=== PATIENT | male | born 1950 | race Caucasian/White ===

== ENCOUNTER 2017-04-02 09:44 | Inpatient (IN) ==
[2017-04-02] MEDS ORDERED: *HR* Morphine 2 MG/ML SYRINGE IVP ONE (10:07)
[2017-04-02] MEDS ORDERED: Ondansetron 4 MG/2 ML VIAL IVP ONE (10:07)
--- NOTE | 2017-04-02 10:31 | Emergency Department Note ---
Disposition Clinical Impression: Acute appendicitis Qualifiers: Acute appendicitis type: with localized peritonitis Qualified Code(s): K35.3 - Acute appendicitis with localized peritonitis Disposition: Admitted As Inpatient Condition: Good Time of Disposition: 11:20 General Adult HPI - General Chief complaint: ED Abdominal Pain Stated complaint: Abd pain Time Seen by Provider: 04/02/17 09:55 Source: patient, family Mode of arrival: ambulatory Limitations: no limitations Nursing Notes Reviewed: Yes Vital Signs Reviewed: Yes - History of Present Illness HPI Narrative: 59-year-old male presenting to the emergency department with chief complaint of abdominal pain. Patient states last evening he cannot possibly because he was having periumbilical pain. The pain is located in the right lower quadrant. He describes nausea but denies vomiting or diarrhea. He denies fever, chest pain, shortness of breath. Patient denies any abdominal surgeries in the past. He states he is going to try to take an Aleve this morning but felt so nauseous she can take anything. Patient has no significant medical history. Patient states the pain is constant but does not radiate. Pain Scale: 9 - Related Data Allergies Allergy/AdvReac Type Severity Reaction Status Date / Time rosuvastatin [From Crestor] AdvReac Muscle Pain Verified 04/02/17 11:35 All systems ED: reviewed and negative except as stated. Constitutional: Denies: fever, chills Eyes: Reports: as per HPI ENT ED: Reports: as per HPI Cardiovascular: Denies: chest pain, palpitations Respiratory: Denies: cough, dyspnea, wheezes Gastrointestinal: Reports: abdominal pain, nausea, vomiting. Denies: diarrhea Genitourinary: Reports: as per HPI Musculoskeletal: Reports: as per HPI Integumentary: Denies: rash, abrasion, lesions Neurological: Reports: as per HPI Psychiatric: Reports: as per HPI Endocrine: Reports: as per HPI Hematological/Lymphatic: Reports: as per HPI Allergic/Immunologic: Reports: as per HPI Past Medical History - Past Medical History Attestation: Yes The following information was validated with the patient. Medical history: Reports: glaucoma, hypertension Psychiatric history: Reports: no psych history - Social History Smoking Status: Former smoker Alcohol use: Reports: occasionally Drug use: Reports: none Physical Exam - General Limitations: no limitations General appearance: alert, in no apparent distress - Head Head exam: atraumatic, normocephalic, normal inspection - Eye Eye exam: Present: normal appearance. Absent: scleral icterus, conjunctival injection - Chest Chest inspection: Present: normal inspection, symmetric chest wall rise. Absent : tenderness - Respiratory Respiratory exam: Present: normal lung sounds bilaterally. Absent: respiratory distress, wheezes - Cardiovascular Cardiovascular exam: Present: regular rate, normal rhythm, normal heart sounds - Abdominal Exam Abdominal exam: Present: soft, tenderness, guarding, tenderness at [place]Bur[place]'s Point. Absent: distention, rebound, rigidity, organomegaly, trauma, incision, ascites, mass, hernia, scar Abdominal tenderness: Present: RLQ, severe - Extremities Exam Extremities exam: Present: normal inspection, full ROM - Back Exam Back exam: Absent: CVA tenderness (R), CVA tenderness (L) - Neurological Exam Neurological exam: Present: alert, oriented X3 - Psychiatric Psychiatric exam: Present: normal affect, normal mood - Skin Skin exam: Present: warm, intact Course Course Narrative: 67-year-old male presenting to the emergency department with chief complaint of right lower quadrant abdominal pain. Patient is extremely tender on exam. He does not have a surgical abdomen at this time but his pain is increasing significantly. We will obtain a CT of the abdomen and pelvis with IV contrast. He will also obtain belly labs including CBC, CMP, lipase. We will treat his nausea and pain as well. Disposition pending at this time. Patient's alert and oriented 3 in the room with stable vital signs at this time. - Reevaluation(s) Reevaluation #1: Patient's CT of abdomen and pelvis showed acute appendicitis. I spoke with the surgeon waste transportation technician Dr. Wallace. He agrees to accept the patient for surgery at this time. We will start prophylactic antibiotics along with fluid replacement via IV. Patient's alert and oriented 3 in the room with stable vital signs at this time. is at bedside. They agree with this plan and are willing to move forward. Time: 11:20 Vital Signs Temperature 97.5 F L 04/02/17 09:45 Pulse Rate 69 04/02/17 09:45 Respiratory Rate 16 04/02/17 09:45 Blood Pressure 183/118 04/02/17 09:45 O2 Sat by Pulse Oximetry 95 04/02/17 09:45 Temperature 97.2 F L 04/02/17 15:44 Pulse Rate 87 10/28/17 18:42 Respiratory Rate 18 04/02/17 17:42 Blood Pressure 148/94 04/02/17 18:42 O2 Sat by Pulse Oximetry 95 04/02/17 18:42 Oxygen Delivery Oxygen Delivery Room Air Medical Decision Making - Lab Data Result diagrams: 04/02/17 11:04 04/02/17 11:04 Lab Results 04/02/17 04/02/17 04/02/17 Range/Units 10:18 10:40 11:04 WBC 10.6 (4.3-11.1) K/mcL RBC 5.39 (4.19-5.50) M/mcL Hgb 17.0 H (12.9-16.9) g/dL Hct 49.1 (37.5-50.1) % MCV 91.1 (83.0-100.0) fL MCH 31.5 (28.0-33.3) pg MCHC 34.6 (31.6-35.5) g/dL RDW 12.4 (11.5-14.5) % Plt Count 233 (140-400) K/mcL MPV 9.1 L (9.4-12.4) fL Immature Gran % 0.4 (0-4) % Seg Neutrophils % 84.7 % Lymphocytes % 7.5 % Monocytes % 6.3 % Eosinophils % 0.7 % Basophils % 0.4 % Neutrophils # 9.0 H (1.6-8.9) K/mcL Lymphocytes # 0.8 (0.6-4.6) K/mcL Monocytes # 0.7 (0.0-1.3) K/mcL Eosinophils # 0.1 (0.0-0.6) K/mcL Basophils # 0.0 (0.0-0.2) K/mcL Immature Plt Fraction 2.4 (1.1-6.1) % PT (9.4-12.1) Seconds INR Sodium (136-145) mEq/L Potassium (3.5-4.5) mEq/L Chloride (98-109) mEq/L Carbon Dioxide (19-29) mEq/L BUN (8-26) mg/dL Creatinine (0.72-1.25) mg/dL Est GFR ( Amer) (> 60) Est GFR (Non-Af Amer) (> 60) BUN/Creatinine Ratio (6-26) Glucose (70-99) mg/dL Calculated Osmolality (280-300) Calcium (8.6-10.8) mg/dL Total Bilirubin (0.2-1.2) mg/dL Direct Bilirubin (0.0-0.5) mg/dL Indirect Bilirubin (0.0-1.2) mg/dL AST (5-34) Units/L ALT (0-55) Units/L Alkaline Phosphatase (38-126) Units/L Serum Total Protein (6.0-8.3) g/dL Albumin (3.5-5.0) g/dL Globulin (2.4-3.5) g/dL Albumin/Globulin Ratio (1.1-2.2) Lipase (8-78) Units/L Urine Color Yellow (Yellow) Urine Clarity Turbid A (Clear) Urine pH 7.5 (5.0-8.0) pH Units Ur Specific [place] 1.022 (1.010-1.025) Urine Protein Trace (Neg-Trace) mg/dL Urine Glucose (UA) Normal (Normal) mg/dL Urine Ketones Negative (Negative) mg/dL Urine Blood Negative (Negative) Urine Nitrite Negative (Negative) Urine Bilirubin Negative (Negative) Urine Urobilinogen Normal (Normal) mg/dL Ur Leukocyte Esterase Negative (Negative) Urine Microscopic RBC 15-30 H (0-3) per hpf Urine Microscopic WBC 0-3 (0-3) per hpf Ur Squamous Epith Cells Few (None-Few) per lpf Urine Bacteria None Seen (None-Few) per hpf Hyaline Casts None Seen (None-Few) per lpf Ur Culture Indicated? NO (NO) Specimen Rejected Clotted 04/02/17 04/02/17 Range/Units 11:04 11:04 WBC (4.3-11.1) K/mcL RBC (4.19-5.50) M/mcL Hgb (12.9-16.9) g/dL Hct (37.5-50.1) % MCV (83.0-100.0) fL MCH (28.0-33.3) pg MCHC (31.6-35.5) g/dL RDW (11.5-14.5) % Plt Count (140-400) K/mcL MPV (9.4-12.4) fL Immature Gran % (0-4) % Seg Neutrophils % % Lymphocytes % % Monocytes % % Eosinophils % % Basophils % % Neutrophils # (1.6-8.9) K/mcL Lymphocytes # (0.6-4.6) K/mcL Monocytes # (0.0-1.3) K/mcL Eosinophils # (0.0-0.6) K/mcL Basophils # (0.0-0.2) K/mcL Immature Plt Fraction (1.1-6.1) % PT 11.1 (9.4-12.1) Seconds INR 1.0 Sodium 135 L (136-145) mEq/L Potassium 4.0 (3.5-4.5) mEq/L Chloride 102 (98-109) mEq/L Carbon Dioxide 27 (19-29) mEq/L BUN 14 (8-26) mg/dL Creatinine 0.85 (0.72-1.25) mg/dL Est GFR ( Amer) > 60 (> 60) Est GFR (Non-Af Amer) > 60 (> 60) BUN/Creatinine Ratio 16 (6-26) Glucose 103 H (70-99) mg/dL Calculated Osmolality 281 (280-300) Calcium 8.9 (8.6-10.8) mg/dL Total Bilirubin 1.2 (0.2-1.2) mg/dL Direct Bilirubin 0.4 (0.0-0.5) mg/dL Indirect Bilirubin 0.8 (0.0-1.2) mg/dL AST 24 (5-34) Units/L ALT 19 (0-55) Units/L Alkaline Phosphatase 88 (38-126) Units/L Serum Total Protein 6.9 (6.0-8.3) g/dL Albumin 3.8 (3.5-5.0) g/dL Globulin 3.1 (2.4-3.5) g/dL Albumin/Globulin Ratio 1.2 (1.1-2.2) Lipase < 10 (8-78) Units/L Urine Color (Yellow) Urine Clarity (Clear) Urine pH (5.0-8.0) pH Units Ur Specific [place] (1.010-1.025) Urine Protein (Neg-Trace) mg/dL Urine Glucose (UA) (Normal) mg/dL Urine Ketones (Negative) mg/dL Urine Blood (Negative) Urine Nitrite (Negative) Urine Bilirubin (Negative) Urine Urobilinogen (Normal) mg/dL Ur Leukocyte Esterase (Negative) Urine Microscopic RBC (0-3) per hpf Urine Microscopic WBC (0-3) per hpf Ur Squamous Epith Cells (None-Few) per lpf Urine Bacteria (None-Few) per hpf Hyaline Casts (None-Few) per lpf Ur Culture Indicated? (NO) Specimen Rejected Attestation Statement - Attestation Attestation: I examined this patient and my medical decision-making was reviewed with the Resident Physician. I agree with the documented findings, disposition and treatment plan as described except to the extent set forth below. Findings of acute appendicitis. Discussed case with surgery. Kayy initiated. Plan to admit to surgery patient will go right to the ER.
[2017-04-02 10:45] LABS: Bilirubin,Urine Negative (Negative); Blood,Urine Negative (Negative); Clarity,Urine Turbid (Clear); Color,Urine Yellow (Yellow); Glucose,Urine (UA) Normal (Normal); Ketones,Urine Negative (Negative); Leukocyte Esterase,Urine Negative (Negative); Nitrite,Urine Negative (Negative); PH,Urine 7.5 pH Units (5.0-8.0); Protein,Urine Trace mg/dL (Neg-Trace); Specific Gravity,Urine 1.022 (1.010-1.025); Urobilinogen,Urine Normal (Normal)
[2017-04-02 10:47] LABS: Bacteria,Urine None Seen per hpf (None-Few); Hyaline Casts,Urine None Seen per lpf (None-Few); RBC,Urine 15-30 per hpf (0-3); Squamous Epithelial Cell,Urine Few per lpf (None-Few); WBC,Urine 0-3 per hpf (0-3)
[2017-04-02] MEDS ORDERED: 0.9 % Sodium Chloride 1,000 ML IVC ONE (11:05)
[2017-04-02] MEDS ORDERED: Piperacillin/Tazobactam 3.375 GM in D5% in Water (Mini-Bag+) 100 ML IVPB ONE (11:05)
[2017-04-02 11:13] LABS: Basophils % 0.4 %; Eosinophils # 0.1 K/mcL (0.0-0.6); Eosinophils % 0.7 %; Hematocrit 49.1 % (37.5-50.1); Immature Granulocytes % 0.4 % (0-4); Immature Platelets 2.4 % (1.1-6.1); Lymphocytes # 0.8 K/mcL (0.6-4.6); Lymphocytes % 7.5 %; Mean Corpuscular HGB Conc 34.6 g/dL (31.6-35.5); Mean Corpuscular Hemoglobin 31.5 pg (28.0-33.3); Mean Corpuscular Volume 91.1 fL (83.0-100.0); Mean Platelet Volume 9.1 fL (9.4-12.4); Monocytes # 0.7 K/mcL (0.0-1.3); Monocytes % 6.3 %; Platelet Count 233 K/mcL (140-400); Red Blood Count 5.39 M/mcL (4.19-5.50); Red Cell Distribution Width 12.4 % (11.5-14.5); Segmented Neutrophils % 84.7 %
[2017-04-02 11:17] LABS: Prothrombin Time 11.1 Seconds (9.4-12.1)
--- NOTE | 2017-04-02 11:21 | Anesthesia Evaluation PreOp ---
Date of Encounter: 04/02/17 Time of Encounter: 13:18 - Past History Planned Operation: lap appy Cardiac History: HTN, Other (3.1cm AAA) Pulmonary History: Former smoker, ZEKE Dx (mild ZEKE) CATALOGUE AND SPECIAL PRODUCTS MANAGER History: Other (glaucoma) Other Medical History: Denies Any Significant HX Anesthesia History: No Prior Anesthetic Complications, Past Anesthesia (eye sx, meniscus sx) Alcohol Use: occasionally Drug use: none Medications and Allergies Bimatoprost [Lumigan] 1 drop LEFT EYE HS 04/02/17 [History] Dorzolamide/Timolol [Cosopt] 1 drop RIGHT EYE BID 04/02/17 [History] Meclizine HCl [Verticalm] 25 mg PO Q6H PRN 04/02/17 [History] Multivitamin [One Daily Essential] 1 tab PO DAILY 04/02/17 [History] Ranitidine HCl [Zantac 75] 75 mg PO DAILY 04/02/17 [History] 3 Allergy/AdvReac Type Severity Reaction Status Date / Time rosuvastatin [From Crestor] AdvReac Muscle Pain Verified 04/02/17 11:35 - Meds/Allergy Pre-op Review Medications Reviewed: Yes Allergies Reviewed: Yes Beta Blockers on Current Med List: No Anesthesia Results - Labs 04/02/17 11:04 04/02/17 11:04 - Imaging Additional studies: CT abdo: acute appendicitis Anesthesia Exam Selected Entries 04/02/17 09:45 04/02/17 11:24 Temperature 97.5 F L Pulse Rate 67 Respiratory Rate 16 Blood Pressure 148/80 O2 Sat by Pulse Oximetry 95 Weight: 100kg NPO (# of Hours): 6 - HEENT Pupil (Motor): EOMI Mallampati: II Teeth: Missing (front upper) Oral Opening: Greater than 3 - CATALOGUE AND SPECIAL PRODUCTS MANAGER LOC: Oriented CATALOGUE AND [employer] PRODUCTS MANAGER Motor: Normal RUE, Normal LUE, Normal RLE, Normal LLE, Normal Face CATALOGUE AND [employer] PRODUCTS MANAGER Sensory: Normal: RUE, LUE, RLE, LLE, Face - Cardiac Rhythm: Regular Murmur: None - Pulmonary Breath Sounds: bilateral Clear Respiratory Effort: Symmetrical Anesthesia Assess/Plan ASA Score: 2, E Modified [place]quel Scale for Level of Consciousness: Cooperative, oriented, and tranquil Anesthetic Plan: General Monitoring Plan: Standard Monitors Recovery Plan: PACU (Discussed risks of GA, agrees to proceed)
[2017-04-02 11:27] LABS: Alanine Aminotransferase 19 Units/L (0-55); Albumin 3.8 g/dL (3.5-5.0); Albumin/Globulin Ratio 1.2 (1.1-2.2); Alkaline Phosphatase 88 Units/L (38-126); Aspartate Amino Transferase 24 Units/L (5-34); BUN/Creatinine Ratio 16 (6-26); Bilirubin,Direct 0.4 mg/dL (0.0-0.5); Bilirubin,Indirect 0.8 mg/dL (0.0-1.2); Bilirubin,Total 1.2 mg/dL (0.2-1.2); Blood Urea Nitrogen 14 mg/dL (8-26); Calcium 8.9 mg/dL (8.6-10.8); Carbon Dioxide 27 mEq/L (19-29); Chloride 102 mEq/L (98-109); Globulin 3.1 g/dL (2.4-3.5); Glucose 103 mg/dL (70-99); Osmolality,Calculated 281 (280-300); Sodium 135 mEq/L (136-145); Total Protein 6.9 g/dL (6.0-8.3); eGFR For African Americans > 60 (> 60); eGFR For Non-African Americans > 60 (> 60)
--- NOTE | 2017-04-02 11:27 | General Surg History&Physical ---
Date of Encounter: 04/02/17 Time of Encounter: 11:15 Assessment and Plan (1) Acute appendicitis Current Visit: Yes Status: Acute The assessment and plan as outlined above was discussed with the patient and/or family members who expressed understanding and agreement. All questions were answered. The patient presents with clinical and radiologic evidence of acute appendicitis. I have recommended laparoscopic appendectomy. I discussed risks and benefits with the patient he understands and wishes to proceed. Qualifiers: Acute appendicitis type: with localized peritonitis Qualified Code(s): K35.3 - Acute appendicitis with localized peritonitis History of Present Illness Chief complaint: Abdominal pain HPI: Mr. Antony is a 67 year old male Who developed centralized abdominal pain last evening. He developed right lower quadrant pain this morning. He has pain with motion. At 8:00 this morning he took his pills but did not want to take them on an empty stomach so he had a piece of bread. He does not have any appetite. The pain is unrelenting and worsening. He sought evaluation in the emergency department. CAT scan demonstrated acute appendicitis. She now presents for laparoscopic appendectomy. Past Med Surg Social Fam HX - Past Medical History Medical history: glaucoma, hypertension Psychiatric history: no psych history - Social History Smoking Status: Former smoker Alcohol use: occasionally Drug use: none Medications and Allergies 3 Allergy/AdvReac Type Severity Reaction Status Date / Time rosuvastatin [From Crestor] Allergy Weakness Verified 04/02/17 09:46 Review of Systems All systems PM: A 10-system review of systems was performed and is negative for pertinent findings except as documented above in the HPI. General Surgery Exam Initial Vital Signs Temp Pulse Resp BP Pulse Ox 97.5 F L 69 16 183/118 95 04/02/17 09:45 04/02/17 09:45 04/02/17 09:45 04/02/17 09:45 04/02/17 09:45 - General physical appearance well developed, well nourished, no distress - Neck no masses, no bruits, trachea midline, no lymphadectomy, no venous distension - Respiratory normal expansion, normal respiratory effort, clear to percussion, clear to auscultation - Cardiovascular Cardiovascular exam: Present: RRR, 15, 16 - Abdomen Abdomen general surgery: Present: guarding, rebound Abdominal Tenderness: Present: RLQ - Neurologic Present: CN 2-12 grossly intact, normal coordination, normal sensation - Psychiatric Psychiatric general surgery: Present: appropriate, oriented to person, oriented to place, oriented to time, speech is normal, memory intact Results - Labs 04/02/17 11:04 Abnormal lab results Hgb 17.0 g/dL (12.9-16.9) H 04/02/17 11:04 MPV 9.1 fL (9.4-12.4) L 04/02/17 11:04 Neutrophils # 9.0 K/mcL (1.6-8.9) H 04/02/17 11:04 Urine Clarity Turbid (Clear) A 04/02/17 10:40 Urine Microscopic RBC 15-30 per hpf (0-3) H 04/02/17 10:40 All other labs normal. - Imaging CT scan - abdomen: image reviewed (I personally reviewed the CAT scan of the abdomen. Findings are consistent with acute appendicitis.)
[2017-04-02 11:28] LABS: Lipase < 10 Units/L (8-78)
[2017-04-02] MEDS ORDERED: *HR* Rocuronium Bromide 50 MG/5 ML VIAL ONE (12:15)
[2017-04-02] MEDS ORDERED: *HR* Propofol 200 MG/20 ML VIAL IVP ONE ×2 (12:15→13:59)
[2017-04-02] MEDS ORDERED: *HR* FentaNYL (PF) 100 MCG/2 ML VIAL ONE (12:15)
[2017-04-02] MEDS ORDERED: *HR* Midazolam HCl 2 MG/2 ML VIAL ONE (12:15)
[2017-04-02] MEDS ORDERED: Ondansetron 4 MG/2 ML VIAL ONE ×2 (12:15→16:30)
[2017-04-02] MEDS ORDERED: Dexamethasone 4 MG/ML VIAL ONE (12:15)
[2017-04-02] MEDS ORDERED: Lidocaine -MPF 2% 2 ML VIAL ONE (12:15)
[2017-04-02] MEDS ORDERED: Neostigmine Methylsulfate 3 MG/3 ML SYRINGE ONE (14:46)
[2017-04-02] MEDS ORDERED: *HR* HYDROmorphone 2 MG/ML SYRINGE ONE (14:46)
--- NOTE | 2017-04-02 15:02 | Operative Note ---
Date of procedure: 04/02/17 Pre-op diagnosis: Acute appendicitis Post-op diagnosis: other (Acute appendicitis with full perforation and free pus and stool in the abdominal cavity) Procedure: Laparoscopic appendectomy Anesthesia: STACY Surgeon: Baljit Wisdom Estimated blood loss (cc): 40 Specimen: Appendix Condition: stable Disposition: PACU Procedure in Detail: After informed consent the patient was taken to the major operative suite and placed in the supine position and given adequate general anesthetic. Time out was taken. Patient was identified. I made a vertical midline incision below the umbilicus and dissected down to the level of fascia. 2 traction stitches were placed in the fascia. The abdomen was entered visually. I placed a Carpenter trocar. The abdomen was insufflated to 15 mmHg pressure. There was generalized peritonitis in the right lower quadrant. There was free pus and visible stool emanating from a perforation 1 cm from the base of the cecum. The cecum had unusual anterior abdominal wall adhesions. These were lysed under direct vision. The cecum was fully mobilized. The mesial appendix was fully mobilized. I divided the base the cecum with a load of gastrointestinal laparoscopic shantel. I divided the mesoappendix with 2 loads of vascular shantel. Both vascular shantel had bleeding after division. Both staple lines were controlled with a combination of electrocautery and #10 surgical clips I irrigated the pelvis and right lower quadrant with copious amounts of antibiotic containing solution. At the end of the procedure all staple lines were intact. There was no bleeding. There is no visible pus or stool. I did not think that a drain was appropriate. All trochars were removed. Fascia was closed with 0 Vicryl and the skin was closed with 2-0 Vicryl and 4-0 Vicryl.
--- NOTE | 2017-04-02 15:35 | Anesthesia Evaluation Post Op ---
Date of Encounter: 04/02/17 Time of Encounter: 15:35 - Vital Signs Vital Signs: Selected Entries 04/02/17 15:10 Temperature 97.9 F Pulse Rate 111 Respiratory Rate 20 Blood Pressure 184/99 O2 Sat by Pulse Oximetry 92 - Lungs Lungs: Clear Ascult./Percussion - Airway Airway: Non-obstructed - Cardiovascular Regular Rate - Mental Status Mental Status: Alert & Oriented, Answers Appropriately - Pain Pain Scale: 1 Pain Scale used: Numeric (1 - 10) - Nausea Vomiting Nausea Vomiting: Not Present - Hydration Hydration: Ice chips - Discharge PostOp Status: Transfer Patient to floor
[2017-04-02] MEDS ORDERED: MetroNIDAZOLE 500 MG/100 ML 500 MG/100 ML BAG IVPB SCH (16:00)
[2017-04-02] MEDS: 0.9 % Sodium Chloride 1,000 ML IVC SCH (16:33)
[2017-04-02] MEDS: Ondansetron 4 MG/2 ML VIAL IVP PRN (16:44)
[2017-04-02] MEDS: *HR* OxyCODONE/APAP 5/325 TABLET PO PRN (17:16)
[2017-04-02] MEDS: *HR* HYDROmorphone (PF) 1 MG/ML SYRINGE IVP PRN (20:11)
[2017-04-02] MEDS: Piperacillin/Tazobactam 3.375 GM in D5% in Water (Mini-Bag+) 100 ML IVPB SCH (20:20)
[2017-04-02] MEDS: (Bimatoprost [Lumigan] 1 DROP) OP SCH (22:49)
[2017-04-02] MEDS: DORZOLAMIDE OP SCH (22:49)
[2017-04-02] MEDS: TIMOLOL OP SCH (22:49)
[2017-04-02] MEDS: MetroNIDAZOLE 500 MG/100 ML 500 MG/100 ML BAG IVPB SCH (23:11)
[2017-04-03] MEDS: MetroNIDAZOLE 500 MG/100 ML 500 MG/100 ML BAG IVPB SCH ×3 (02:26→18:15)
[2017-04-03] MEDS: *HR* OxyCODONE/APAP 5/325 TABLET PO PRN ×4 (03:11→22:16)
[2017-04-03] MEDS: Piperacillin/Tazobactam 3.375 GM in D5% in Water (Mini-Bag+) 100 ML IVPB SCH ×3 (03:35→22:17)
[2017-04-03 04:34] LABS: Basophils % 0.1 %; Hematocrit 47.1 % (37.5-50.1); Hemoglobin 16.1 g/dL (12.9-16.9); Immature Granulocytes % 0.4 % (0-4); Lymphocytes # 0.7 K/mcL (0.6-4.6); Lymphocytes % 5.1 %; Mean Corpuscular HGB Conc 34.2 g/dL (31.6-35.5); Mean Corpuscular Hemoglobin 31.1 pg (28.0-33.3); Mean Corpuscular Volume 90.9 fL (83.0-100.0); Mean Platelet Volume 9.7 fL (9.4-12.4); Monocytes # 0.8 K/mcL (0.0-1.3); Monocytes % 5.6 %; Neutrophils # 12.6 K/mcL (1.6-8.9); Platelet Count 237 K/mcL (140-400); Red Blood Count 5.18 M/mcL (4.19-5.50); Red Cell Distribution Width 12.4 % (11.5-14.5); Segmented Neutrophils % 88.8 %
[2017-04-03 04:40] LABS: BUN/Creatinine Ratio 16 (6-26); Blood Urea Nitrogen 14 mg/dL (8-26); Calcium 8.6 mg/dL (8.6-10.8); Carbon Dioxide 25 mEq/L (19-29); Chloride 102 mEq/L (98-109); Glucose 124 mg/dL (70-99); Osmolality,Calculated 282 (280-300); Sodium 135 mEq/L (136-145); eGFR For African Americans > 60 (> 60); eGFR For Non-African Americans > 60 (> 60)
[2017-04-03] MEDS: Pantoprazole 40 MG VIAL IVP SCH (08:02)
[2017-04-03] MEDS: TIMOLOL OP SCH ×2 (08:11→22:16)
[2017-04-03] MEDS: DORZOLAMIDE OP SCH ×2 (08:11→22:16)
[2017-04-03] MEDS: *HR* HYDROmorphone (PF) 1 MG/ML SYRINGE IVP PRN (10:50)
[2017-04-03] MEDS: Ondansetron 4 MG/2 ML VIAL IVP PRN (12:41)
--- NOTE | 2017-04-03 13:44 | General Surgery Progress Note ---
<Richie Todd - Last Filed: 04/03/17 14:13> Date of Encounter: 04/03/17 Time of Encounter: 13:30 - Assessment and Plan (1) Status post laparoscopic appendectomy Current Visit: Yes Status: Acute Patient is POD 1 of Laparoscopic appendectomy performed on 04/02/17. There was free pus present and visible stool emanating from a perforation 1 cm from the base of the patient's cecum. Patient tolerated procedure well. Plan: -Dilaudid 1 mg every when necessary. -IV antibiotics: Flagyl 500 mg every 8 hours IV and Zosyn 3.375 g IV every 8 hour. -Protonix 40 mg IV daily. -Percocet by mouth every 4 hours when necessary for pain (1 through 5). -Clear liquid diet. -Pathology report pending. -Incentive spirometry. -Closely monitor patient's temperature. -Repeat a.m. labs. (2) DVT prophylaxis Current Visit: Yes Status: Acute Heparin 5000 SQ q12 Subjective Patient reports: feels better, still having pain, pain is less Narrative: Patient was seen and examined at bedside this afternoon. Patient states that he is feeling better. He still feels some pain around his incision sites, but this is gradually improving. He denies nausea, vomiting, fever, chills. Objective Vital Signs - Last 8 Hours Temp Pulse Resp BP Pulse Ox 04/03/17 11:30 98.2 F 57 16 135/81 95 04/03/17 07:22 97.8 F 57 18 131/65 94 Intake and Output 04/02/17 04/03/17 04/03/17 23:59 07:59 15:59 Intake Total 100 / 100 200 / 200 480 / 480 Output Total 350 / 350 800 / 800 Balance -250 / -250 -600 / -600 480 / 480 Intake: IV Fluids 100 / 100 200 / 200 Flagyl Premix 500 MG/100 ML 500 100 / 100 100 / 100 mg In 100 ml @ 100 mls/hr IVPB Q8H [facility] Rx#:[id number] Zosyn 3.375 GM In Dextrose 5% ( 100 / 100 Minibag+) 100 ML 100 ML @ 25 mls/hr IVPB Q8H [facility] Rx#: [id number] Oral 480 / 480 Output: Urine 350 / 350 800 / 800 Other: Weight 98.611 kg Patient Weight 04/03/17 23:59 Weight 98.611 kg - General physical appearance well developed, well nourished, no distress - Respiratory normal expansion, normal respiratory effort, clear to auscultation - Cardiovascular Cardiovascular exam: Present: RRR, no murmurs/rubs/gallops - Abdomen Abdomen: Present: bowel sounds present, soft, tender Abdominal Tenderness: RLQ - Incision Incision: Present: clean and dry - Labs 04/03/17 03:57 04/03/17 03:57 Diabetes panel 04/03/17 Range/Units 03:57 Sodium 135 L (136-145) mEq/L Potassium 4.0 (3.5-4.5) mEq/L Chloride 102 (98-109) mEq/L Carbon Dioxide 25 (19-29) mEq/L BUN 14 (8-26) mg/dL Creatinine 0.85 (0.72-1.25) mg/dL Glucose 124 H (70-99) mg/dL Calcium 8.6 (8.6-10.8) mg/dL Calcium panel 04/03/17 Range/Units 03:57 Calcium 8.6 (8.6-10.8) mg/dL Pituitary panel 04/03/17 Range/Units 03:57 Sodium 135 L (136-145) mEq/L Potassium 4.0 (3.5-4.5) mEq/L Chloride 102 (98-109) mEq/L Carbon Dioxide 25 (19-29) mEq/L BUN 14 (8-26) mg/dL Creatinine 0.85 (0.72-1.25) mg/dL Glucose 124 H (70-99) mg/dL Calcium 8.6 (8.6-10.8) mg/dL Adrenal panel 04/03/17 Range/Units 03:57 Sodium 135 L (136-145) mEq/L Potassium 4.0 (3.5-4.5) mEq/L Chloride 102 (98-109) mEq/L Carbon Dioxide 25 (19-29) mEq/L BUN 14 (8-26) mg/dL Creatinine 0.85 (0.72-1.25) mg/dL Glucose 124 H (70-99) mg/dL Calcium 8.6 (8.6-10.8) mg/dL - VTE Documentation of Mechanical Device: Intermittent pneumatic compression device Consult Discharge Plan - Plan Referrals: Pete Calderon Jr, MD [Primary Care Provider] - <Baljit Wisdom - Last Filed: 04/03/17 18:23> Date of Encounter: 04/03/17 - Assessment and Plan (1) Acute appendicitis Current Visit: Yes Status: Acute Qualifiers: Acute appendicitis type: with localized peritonitis Qualified Code(s): K35.3 - Acute appendicitis with localized peritonitis Objective Vital Signs - Last 8 Hours Temp Pulse Resp BP Pulse Ox 04/03/17 15:58 97.9 F 64 16 149/83 96 04/03/17 11:30 98.2 F 57 16 135/81 95 Intake and Output 04/03/17 04/03/17 04/03/17 07:59 15:59 23:59 Intake Total 200 / 200 480 / 480 360 / 360 Output Total 800 / 800 Balance -600 / -600 480 / 480 360 / 360 Intake: IV Fluids 200 / 200 Flagyl Premix 500 MG/100 ML 500 100 / 100 mg In 100 ml @ 100 mls/hr IVPB Q8H [facility] Rx#:[id number] Zosyn 3.375 GM In Dextrose 5% ( 100 / 100 Minibag+) 100 ML 100 ML @ 25 mls/hr IVPB Q8H [facility] Rx#: [id number] Oral 480 / 480 360 / 360 Output: Urine 800 / 800 Other: Meal Lunch Weight 98.611 kg Patient Weight 04/03/17 23:59 Weight 98.611 kg - Labs 04/03/17 03:57 04/03/17 03:57 Diabetes panel 04/03/17 Range/Units 03:57 Sodium 135 L (136-145) mEq/L Potassium 4.0 (3.5-4.5) mEq/L Chloride 102 (98-109) mEq/L Carbon Dioxide 25 (19-29) mEq/L BUN 14 (8-26) mg/dL Creatinine 0.85 (0.72-1.25) mg/dL Glucose 124 H (70-99) mg/dL Calcium 8.6 (8.6-10.8) mg/dL Calcium panel 04/03/17 Range/Units 03:57 Calcium 8.6 (8.6-10.8) mg/dL Pituitary panel 04/03/17 Range/Units 03:57 Sodium 135 L (136-145) mEq/L Potassium 4.0 (3.5-4.5) mEq/L Chloride 102 (98-109) mEq/L Carbon Dioxide 25 (19-29) mEq/L BUN 14 (8-26) mg/dL Creatinine 0.85 (0.72-1.25) mg/dL Glucose 124 H (70-99) mg/dL Calcium 8.6 (8.6-10.8) mg/dL Adrenal panel 04/03/17 Range/Units 03:57 Sodium 135 L (136-145) mEq/L Potassium 4.0 (3.5-4.5) mEq/L Chloride 102 (98-109) mEq/L Carbon Dioxide 25 (19-29) mEq/L BUN 14 (8-26) mg/dL Creatinine 0.85 (0.72-1.25) mg/dL Glucose 124 H (70-99) mg/dL Calcium 8.6 (8.6-10.8) mg/dL - Attending Attestation I examined this patient and my medical decision-making was reviewed with the Resident Physician. I agree with the documented findings, disposition and treatment plan as described except to the extent set forth below. The patient was seen and evaluated on morning rounds with the resident. He is doing quite well and has decreased abdominal pain. We will continue IV antibiotics secondary to fully perforated appendicitis with free stool and pus in the abdomen. Baljit Wisdom MD FACS
[2017-04-03] MEDS: (Bimatoprost [Lumigan] 1 DROP) OP SCH (22:16)
[2017-04-04] MEDS: MetroNIDAZOLE 500 MG/100 ML 500 MG/100 ML BAG IVPB SCH ×3 (03:11→18:03)
[2017-04-04 05:06] LABS: Basophils % 0.3 %; Eosinophils # 0.1 K/mcL (0.0-0.6); Eosinophils % 0.9 %; Hematocrit 45.4 % (37.5-50.1); Hemoglobin 15.4 g/dL (12.9-16.9); Immature Granulocytes % 0.4 % (0-4); Lymphocytes # 0.7 K/mcL (0.6-4.6); Lymphocytes % 6.4 %; Mean Corpuscular HGB Conc 33.9 g/dL (31.6-35.5); Mean Corpuscular Hemoglobin 31.2 pg (28.0-33.3); Mean Corpuscular Volume 92.1 fL (83.0-100.0); Mean Platelet Volume 9.7 fL (9.4-12.4); Monocytes # 0.8 K/mcL (0.0-1.3); Monocytes % 7.5 %; Neutrophils # 9.1 K/mcL (1.6-8.9); Platelet Count 211 K/mcL (140-400); Red Blood Count 4.93 M/mcL (4.19-5.50); Red Cell Distribution Width 12.8 % (11.5-14.5); Segmented Neutrophils % 84.5 %
[2017-04-04] MEDS: *HR* OxyCODONE/APAP 5/325 TABLET PO PRN ×2 (05:18→21:43)
[2017-04-04] MEDS: Piperacillin/Tazobactam 3.375 GM in D5% in Water (Mini-Bag+) 100 ML IVPB SCH ×4 (05:19→23:00)
[2017-04-04] MEDS: 0.9 % Sodium Chloride 1,000 ML IVC SCH ×3 (05:20→23:01)
[2017-04-04 05:35] LABS: BUN/Creatinine Ratio 17 (6-26); Blood Urea Nitrogen 15 mg/dL (8-26); Calcium 8.6 mg/dL (8.6-10.8); Carbon Dioxide 27 mEq/L (19-29); Chloride 102 mEq/L (98-109); Glucose 100 mg/dL (70-99); Osmolality,Calculated 285 (280-300); Potassium 3.7 mEq/L (3.5-4.5); Sodium 137 mEq/L (136-145); eGFR For African Americans > 60 (> 60); eGFR For Non-African Americans > 60 (> 60)
[2017-04-04] MEDS ORDERED: MOM Conc 10 ML UD.LIQ PO ONE (08:07)
[2017-04-04] MEDS: Pantoprazole 40 MG VIAL IVP SCH (08:15)
[2017-04-04] MEDS: DORZOLAMIDE OP SCH ×2 (10:22→20:20)
[2017-04-04] MEDS: TIMOLOL OP SCH ×2 (10:22→20:20)
--- NOTE | 2017-04-04 11:37 | General Surgery Progress Note ---
<BenignoLeny Ebenezer - Last Filed: 04/04/17 12:06> Date of Encounter: 04/04/17 Time of Encounter: 11:37 - Assessment and Plan (1) Status post laparoscopic appendectomy Current Visit: Yes Status: Acute Date of procedure: 04/02/17 Pre-op diagnosis: Acute appendicitis Post-op diagnosis: other (Acute appendicitis with full perforation and free pus and stool in the abdominal cavity) Procedure: POD #2 Laparoscopic appendectomy. His abdominal exam is benign. He has ambulating avoiding without difficulty. He states this discomfort is relatively controlled. He states in appetite and requests to eat "a cheeseburger." He is afebrile. Plan: 1. Continue supportive care and discomfort management. 2. Add PRN ibuprofen. 3. DC IV fluids. 4. Continue G.I. and DVT prophylaxis. 5. Up ad byron 6. Will consider possible discharge planning on Tuesday pending clinical course. Patient must be afebrile for at least 24 hours prior to consideration of switching to PO antibiotics. 7. Leukocytosis has resolved. No need to repeat a.m. labs at this time. 8. Advance diet as tolerated (2) DVT prophylaxis Current Visit: Yes Status: Acute EPCDs while in bed. Up ad byron; ambulate in halls at least TID. Heparin 5000 Units SubQ BID Subjective Patient reports: no new complaints, feels better, still having pain, pain is less, tolerating liquids well, voiding w/o difficulty, flatus, no bowel movement , afebrile Narrative: Denies nausea. States he would like to "eat a cheeseburger." Objective Vital Signs - Last 8 Hours Temp Pulse Resp BP Pulse Ox 04/04/17 11:07 98.4 F 72 16 142/80 94 04/04/17 07:35 98.3 F 63 16 160/90 100 04/04/17 03:40 98.2 F 63 18 144/87 94 Intake and Output 04/03/17 04/04/17 04/04/17 23:59 07:59 15:59 Intake Total 560 / 560 850 / 850 120 / 120 Output Total 725 / 725 325 / 325 Balance -165 / -165 850 / 850 -205 / -205 Intake: IV Fluids 200 / 200 200 / 200 Flagyl Premix 500 MG/100 ML 500 100 / 100 100 / 100 mg In 100 ml @ 100 mls/hr IVPB Q8H [facility] Rx#:[id number] Zosyn 3.375 GM In Dextrose 5% ( 100 / 100 100 / 100 Minibag+) 100 ML 100 ML @ 25 mls/hr IVPB Q8H [facility] Rx#: [id number] Oral 360 / 360 650 / 650 120 / 120 Output: Urine 725 / 725 325 / 325 Other: Meal Lunch Breakfast Weight 97.749 kg Patient Weight 04/04/17 23:59 Weight 97.749 kg - General physical appearance no distress, no pain - Eyes normal ocular movement - ENT atraumatic, normocephalic, CN 2-12 grossly intact - Neck Neck exam: no venous distension - Respiratory normal expansion, normal respiratory effort, clear to auscultation - Cardiovascular Cardiovascular exam: Present: RRR - Abdomen Abdomen: Present: bowel sounds present, soft, tender (Expected postoperative) Hernia: none - Incision Incision: Present: clean and dry, intact - Integumentary no rash, no growths - Neurologic CN 2-12 grossly intact, normal coordination, normal sensation - Musculoskeletal normal gait, normal posture - Psychiatric oriented to time, oriented to person, oriented to place, speech is normal, memory intact - Labs 04/04/17 04:26 04/04/17 04:26 Diabetes panel 04/04/17 Range/Units 04:26 Sodium 137 (136-145) mEq/L Potassium 3.7 (3.5-4.5) mEq/L Chloride 102 (98-109) mEq/L Carbon Dioxide 27 (19-29) mEq/L BUN 15 (8-26) mg/dL Creatinine 0.89 (0.72-1.25) mg/dL Glucose 100 H (70-99) mg/dL Calcium 8.6 (8.6-10.8) mg/dL Calcium panel 04/04/17 Range/Units 04:26 Calcium 8.6 (8.6-10.8) mg/dL Pituitary panel 04/04/17 Range/Units 04:26 Sodium 137 (136-145) mEq/L Potassium 3.7 (3.5-4.5) mEq/L Chloride 102 (98-109) mEq/L Carbon Dioxide 27 (19-29) mEq/L BUN 15 (8-26) mg/dL Creatinine 0.89 (0.72-1.25) mg/dL Glucose 100 H (70-99) mg/dL Calcium 8.6 (8.6-10.8) mg/dL Adrenal panel 04/04/17 Range/Units 04:26 Sodium 137 (136-145) mEq/L Potassium 3.7 (3.5-4.5) mEq/L Chloride 102 (98-109) mEq/L Carbon Dioxide 27 (19-29) mEq/L BUN 15 (8-26) mg/dL Creatinine 0.89 (0.72-1.25) mg/dL Glucose 100 H (70-99) mg/dL Calcium 8.6 (8.6-10.8) mg/dL - VTE Documentation of Mechanical Device: Venous foot pump, device Consult Discharge Plan - Plan Referrals: Pete Calderon Jr, MD [Primary Care Provider] - <Baljit Wisdom - Last Filed: 04/05/17 08:28> Date of Encounter: 04/04/17 - Assessment and Plan (1) Acute appendicitis Current Visit: Yes Status: Acute Qualifiers: Acute appendicitis type: with localized peritonitis Qualified Code(s): K35.3 - Acute appendicitis with localized peritonitis Objective Vital Signs - Last 8 Hours Temp Pulse Resp BP Pulse Ox 04/05/17 07:23 97.8 F 68 17 138/85 93 04/05/17 03:30 98.2 F 71 18 140/89 94 Intake and Output 04/04/17 04/05/17 04/05/17 23:59 07:59 15:59 Intake Total 1640 / 1640 200 / 200 Output Total 375 / 375 Balance 1640 / 1640 -175 / -175 Intake: IV Fluids 1400 / 1400 200 / 200 0.9 % Sodium Chloride 1,000 ML 1000 / 1000 @ 75 mls/hr IVC .[id number] [facility] Rx #:[id number] Flagyl Premix 500 MG/100 ML 500 100 / 100 100 / 100 mg In 100 ml @ 100 mls/hr IVPB Q8H [facility] Rx#:[id number] Zosyn 3.375 GM In Dextrose 5% ( 200 / 200 100 / 100 Minibag+) 100 ML 100 ML @ 25 mls/hr IVPB Q8H [facility] Rx#: [id number] Oral 240 / 240 Output: Urine 375 / 375 Other: Weight 100.38 kg Patient Weight 04/05/17 23:59 Weight 100.38 kg - Labs 04/05/17 03:18 04/05/17 03:18 Diabetes panel 04/05/17 Range/Units 03:18 Sodium 136 (136-145) mEq/L Potassium 3.8 (3.5-4.5) mEq/L Chloride 102 (98-109) mEq/L Carbon Dioxide 27 (19-29) mEq/L BUN 16 (8-26) mg/dL Creatinine 0.90 (0.72-1.25) mg/dL Glucose 99 (70-99) mg/dL Calcium 8.7 (8.6-10.8) mg/dL Calcium panel 04/05/17 Range/Units 03:18 Calcium 8.7 (8.6-10.8) mg/dL Pituitary panel 04/05/17 Range/Units 03:18 Sodium 136 (136-145) mEq/L Potassium 3.8 (3.5-4.5) mEq/L Chloride 102 (98-109) mEq/L Carbon Dioxide 27 (19-29) mEq/L BUN 16 (8-26) mg/dL Creatinine 0.90 (0.72-1.25) mg/dL Glucose 99 (70-99) mg/dL Calcium 8.7 (8.6-10.8) mg/dL Adrenal panel 04/05/17 Range/Units 03:18 Sodium 136 (136-145) mEq/L Potassium 3.8 (3.5-4.5) mEq/L Chloride 102 (98-109) mEq/L Carbon Dioxide 27 (19-29) mEq/L BUN 16 (8-26) mg/dL Creatinine 0.90 (0.72-1.25) mg/dL Glucose 99 (70-99) mg/dL Calcium 8.7 (8.6-10.8) mg/dL - Attending Attestation I have personally performed a face to face evaluation on this patient. I have reviewed and agree with the care plan. History and Exam by me shows: The patient is seen and evaluated on morning rounds with the resident. This clinical information shared with the clinical nurse practitioner in the care plan discussed. The patient is doing very well on antibiotic therapy after fully perforated appendicitis with fecal contamination of the abdominal cavity. He is tolerating diet and had bowel movement today. Baljit Wisdom MD FACS
[2017-04-04] MEDS ORDERED: Ibuprofen 800 MG TABLET PO PRN (11:49)
[2017-04-04] MEDS ORDERED: *HR* HYDROmorphone (PF) 1 MG/ML SYRINGE IVP PRN (11:51)
[2017-04-04] MEDS: LEUTEIN PO SCH ×2 (17:06→21:44)
[2017-04-04] MEDS: *HR* Heparin 5,000 UNIT/ML VIAL SQ SCH (18:03)
[2017-04-04] MEDS: (Bimatoprost [Lumigan] 1 DROP) OP SCH (20:20)
[2017-04-05] MEDS: Piperacillin/Tazobactam 3.375 GM in D5% in Water (Mini-Bag+) 100 ML IVPB SCH ×5 (01:05→23:37)
[2017-04-05] MEDS: MetroNIDAZOLE 500 MG/100 ML 500 MG/100 ML BAG IVPB SCH ×2 (03:07→10:22)
[2017-04-05] MEDS: *HR* OxyCODONE/APAP 5/325 TABLET PO PRN ×3 (04:10→19:28)
[2017-04-05 04:36] LABS: Basophils % 0.5 %; Eosinophils # 0.2 K/mcL (0.0-0.6); Eosinophils % 2.4 %; Hemoglobin 15.3 g/dL (12.9-16.9); Immature Granulocytes % 0.3 % (0-4); Lymphocytes # 0.9 K/mcL (0.6-4.6); Lymphocytes % 10.2 %; Mean Corpuscular Hemoglobin 31.2 pg (28.0-33.3); Mean Corpuscular Volume 91.8 fL (83.0-100.0); Mean Platelet Volume 9.9 fL (9.4-12.4); Monocytes # 0.8 K/mcL (0.0-1.3); Monocytes % 9.7 %; Neutrophils # 6.6 K/mcL (1.6-8.9); Platelet Count 224 K/mcL (140-400); Red Cell Distribution Width 12.4 % (11.5-14.5); Segmented Neutrophils % 76.9 %
[2017-04-05 05:11] LABS: BUN/Creatinine Ratio 18 (6-26); Blood Urea Nitrogen 16 mg/dL (8-26); Calcium 8.7 mg/dL (8.6-10.8); Carbon Dioxide 27 mEq/L (19-29); Chloride 102 mEq/L (98-109); Glucose 99 mg/dL (70-99); Osmolality,Calculated 283 (280-300); Potassium 3.8 mEq/L (3.5-4.5); Sodium 136 mEq/L (136-145); eGFR For African Americans > 60 (> 60); eGFR For Non-African Americans > 60 (> 60)
[2017-04-05] MEDS: *HR* Heparin 5,000 UNIT/ML VIAL SQ SCH ×2 (05:23→17:25)
[2017-04-05] MEDS: Pantoprazole 40 MG VIAL IVP SCH (07:38)
[2017-04-05] MEDS: TIMOLOL OP SCH ×2 (07:38→19:28)
[2017-04-05] MEDS: DORZOLAMIDE OP SCH ×2 (07:38→19:28)
[2017-04-05] MEDS: LEUTEIN PO SCH ×2 (07:46→21:27)
--- NOTE | 2017-04-05 10:16 | General Surgery Progress Note ---
<Leny Pelaez Ebenezer - Last Filed: 04/05/17 10:22> Date of Encounter: 04/05/17 Time of Encounter: 10:16 - Assessment and Plan (1) Status post laparoscopic appendectomy Current Visit: Yes Status: Acute Date of procedure: 04/02/17 Pre-op diagnosis: Acute appendicitis Post-op diagnosis: other (Acute appendicitis with full perforation and free pus and stool in the abdominal cavity) Procedure: POD #3 Laparoscopic appendectomy. His abdominal exam is benign. He has ambulating avoiding without difficulty. He states this discomfort is relatively controlled. He is tolerating regular diet. He was noted to have low -grade temperature on 04/04/2017 of 99.1. Plan: 1. Continue supportive care and discomfort management. 2. Continue PRN ibuprofen. 3. Continue regular diet. 4. Continue G.I. and DVT prophylaxis. 5. Up ad byron 6. DC planning in the next 24 to 48 hours pending clinical course. Patient must be at trial for 24 hours. 7. Leukocytosis has resolved. No need to repeat a.m. labs at this time. (2) DVT prophylaxis Current Visit: Yes Status: Acute EPCDs while in bed. Up ad byron; ambulate in halls at least TID. Heparin 5000 Units SubQ BID Subjective Patient reports: no new complaints, feels better, still having pain, pain is less, tolerating a regular diet, voiding w/o difficulty, flatus, bowel movement , afebrile Objective - General physical appearance well developed, well nourished, no distress, severe distress - Eyes normal ocular movement - ENT atraumatic, normocephalic - Neck Neck exam: no masses, no venous distension - Respiratory normal expansion, normal respiratory effort, clear to auscultation - Cardiovascular Cardiovascular exam: Present: RRR - Abdomen Abdomen: Present: bowel sounds present, soft, tender (Expected postoperative) Hernia: none - Incision Incision: Present: clean and dry, intact - Neurologic normal coordination, normal sensation - Musculoskeletal normal gait, normal posture - Psychiatric oriented to time, oriented to person, oriented to place, speech is normal, memory intact - Labs 04/05/17 03:18 04/05/17 03:18 - VTE Documentation of Mechanical Device: Intermittent pneumatic compression device Consult Discharge Plan - Plan Instructions: Laparoscopic Appendectomy (DC) Additional Instructions: General Surgical Discharge Instructions 1. No pushing, pulling, or lifting greater than 15 lbs for two weeks. 2. You may shower beginning today, but no tub baths, soaking, or swimming for 2 weeks. 3. You may resume driving when you are off narcotics and are safe to react in a car. 4. Take narcotics as directed. Do not take more narcotics then directed and do not share your narcotics with any other person. Do not drink alcohol while on narcotics. 5. Take stool softeners (Colace) or a water based laxative (Miralax) while taking narcotics. You may hold for loose stools. 6. Report any fevers greater than 100.5F, increase abdominal discomfort, drainage that looks like pus, increased redness or pain at the surgical site, or any vomiting. 7. Report any pain in the calves, shortness of breath, or rapid heartbeat. 8. Follow-up in the office as directed. 9. If you were prescribed antibiotics, do not stop them without talking to your provider. 10. Do not drink alcohol while taking metronidazole. Refrain from drinking alcohol for 48 hours after completing metronidazole. Referrals: Pete Calderon Jr, MD [Primary Care Provider] - Leny Pelaez CNP [Advanced Practice Nurse] - 04/15/17 8:30 am Prescriptions: Ondansetron ODT [Zofran ODT] 4 mg SL Q4HR #15 tab.rapdis OxyCODONE/APAP 5/325 [Percocet 5/325 MG] 1 each PO Q6HR PRN #28 tablet PRN Reason: Pain (1-5) Ibuprofen [Motrin] 800 mg PO Q8HR PRN #30 tablet PRN Reason: Pain rated 1-6 Ciprofloxacin [Cipro] 500 mg PO BID #14 tablet Docusate [Colace] 100 mg PO DAILY PRN #60 capsule PRN Reason: Constipation metroNIDAZOLE [Flagyl] 500 mg PO Q8H #28 tablet <Baljit Wisdom - Last Filed: 04/06/17 10:54> Date of Encounter: 04/05/17 - Assessment and Plan (1) Acute appendicitis Current Visit: Yes Status: Acute Qualifiers: Acute appendicitis type: with localized peritonitis Qualified Code(s): K35.3 - Acute appendicitis with localized peritonitis Objective Vital Signs - Last 8 Hours Temp Pulse Resp BP Pulse Ox 04/06/17 07:12 97.7 F 75 15 155/81 95 Intake and Output 04/05/17 04/06/17 04/06/17 23:59 07:59 15:59 Intake Total 850 / 850 400 / 400 120 / 120 Output Total 400 / 400 Balance 850 / 850 0 / 0 120 / 120 Intake: IV Fluids 100 / 100 100 / 100 Zosyn 3.375 GM In Dextrose 5% ( 100 / 100 100 / 100 Minibag+) 100 ML 100 ML @ 25 mls/hr IVPB Q8H [facility] Rx#: [id number] Oral 750 / 750 300 / 300 120 / 120 Output: Urine 400 / 400 Other: Meal Breakfast Percent of Meal Consumed 75% # Voids 2 - Labs 04/05/17 03:18 04/05/17 03:18 - Attending Attestation I have personally performed a face to face evaluation on this patient. I have reviewed and agree with the care plan. History and Exam by me shows: The patient is seen and evaluated on morning rounds with the resident. He is doing quite well. He is afebrile. Today will be his last full day of intravenous antibiotics. We will plan discharge tomorrow. He is tolerating diet. He bowel movement. Pain control is excellent. Baljit Wisdom MD FACS
[2017-04-05] MEDS: metroNIDAZOLE 500 MG TABLET PO SCH (17:25)
[2017-04-05] MEDS: (Bimatoprost [Lumigan] 1 DROP) OP SCH (19:28)
[2017-04-06] MEDS: metroNIDAZOLE 500 MG TABLET PO SCH (02:13)
[2017-04-06] MEDS: *HR* OxyCODONE/APAP 5/325 TABLET PO PRN (03:52)
[2017-04-06] MEDS: *HR* Heparin 5,000 UNIT/ML VIAL SQ SCH (06:11)
[2017-04-06 07:14] VITALS: BP 155/81
--- NOTE | 2017-04-06 10:29 | Discharge Summary ---
<Leny Pelaez L - Last Filed: 04/06/17 10:41> Date of Encounter: 04/06/17 Time of Encounter: 10:27 - Discharge Diagnosis (1) Status post laparoscopic appendectomy Priority: Primary Status: Resolved (2) DVT prophylaxis Priority: Secondary Status: Acute - Discharge Medications Prescriptions: Ondansetron ODT [Zofran ODT] 4 mg SL Q4HR #15 tab.rapdis OxyCODONE/APAP 5/325 [Percocet 5/325 MG] 1 each PO Q6HR PRN #28 tablet PRN Reason: Pain (1-5) Ibuprofen [Motrin] 800 mg PO Q8HR PRN #30 tablet PRN Reason: Pain rated 1-6 Ciprofloxacin [Cipro] 500 mg PO BID #14 tablet Docusate [Colace] 100 mg PO DAILY PRN #60 capsule PRN Reason: Constipation metroNIDAZOLE [Flagyl] 500 mg PO Q8H #28 tablet Home Medications: Bimatoprost [Lumigan] 1 drop LEFT EYE HS 04/02/17 [History] Dorzolamide/Timolol [Cosopt] 1 drop RIGHT EYE BID 04/02/17 [History] Meclizine HCl [Verticalm] 25 mg PO Q6H PRN 04/02/17 [History] Multivitamin [One Daily Essential] 1 tab PO DAILY 04/02/17 [History] Ranitidine HCl [Zantac 75] 75 mg PO DAILY 04/02/17 [History] Ciprofloxacin [Cipro] 500 mg PO BID #14 tablet 04/06/17 [Rx] Docusate [Colace] 100 mg PO DAILY PRN #60 capsule 04/06/17 [Rx] Ibuprofen [Motrin] 800 mg PO Q8HR PRN #30 tablet 04/06/17 [Rx] Ondansetron ODT [Zofran ODT] 4 mg SL Q4HR #15 tab.rapdis 04/06/17 [Rx] OxyCODONE/APAP 5/325 [Percocet 5/325 MG] 1 each PO Q6HR PRN #28 tablet 04/06/17 [Rx] metroNIDAZOLE [Flagyl] 500 mg PO Q8H #28 tablet 04/06/17 [Rx] Allergies/Adverse Reactions: 3 Allergy/AdvReac Type Severity Reaction Status Date / Time rosuvastatin [From Crestor] AdvReac Muscle Pain Verified 04/02/17 11:35 General Surgery Exam Initial Vital Signs Temp Pulse Resp BP Pulse Ox 97.5 F L 69 16 183/118 95 04/02/17 09:45 04/02/17 09:45 04/02/17 09:45 04/02/17 09:45 04/02/17 09:45 - General physical appearance well developed, well nourished, no distress - ENT normal nares, normal mucosa, atraumatic, normocephalic - Neck trachea midline, no venous distension - Respiratory normal expansion, normal respiratory effort, clear to auscultation - Cardiovascular Cardiovascular exam: Present: RRR, 15, 16 - Abdomen Abdomen general surgery: Present: bowel sounds present, soft, tender (Expected postoperative) Hernia: Present: none - Incision Incision: Present: clean and dry, intact - Integumentary Integumentary general surgery: Present: warm and dry, no abnormal pigmentation - Neurologic Present: CN 2-12 grossly intact, normal coordination, normal sensation - Musculoskeletal Present: normal gait, normal posture - Psychiatric Psychiatric general surgery: Present: A&Ox3, appropriate, oriented to person, oriented to place, oriented to time, speech is normal, memory intact Date of admission: 04/05/17 09:24 Primary care physician: Pete Calderon Jr, MD - Patient Status Disposition: Home, Self-Care Condition: Good Functional capacity at discharge: independent ambulation Overall status at discharge: patient is progressing back to baseline - Discharge Instructions Instructions: Laparoscopic Appendectomy (DC) Follow Up With: Pete Calderon Jr, MD [Primary Care Provider] - Leny Pelaez CNP [Advanced Practice Nurse] - 04/15/17 8:30 am Additional Instructions: General Surgical Discharge Instructions 1. No pushing, pulling, or lifting greater than 15 lbs for two weeks. 2. You may shower beginning today, but no tub baths, soaking, or swimming for 2 weeks. 3. You may resume driving when you are off narcotics and are safe to react in a car. 4. Take narcotics as directed. Do not take more narcotics then directed and do not share your narcotics with any other person. Do not drink alcohol while on narcotics. 5. Take stool softeners (Colace) or a water based laxative (Miralax) while taking narcotics. You may hold for loose stools. 6. Report any fevers greater than 100.5F, increase abdominal discomfort, drainage that looks like pus, increased redness or pain at the surgical site, or any vomiting. 7. Report any pain in the calves, shortness of breath, or rapid heartbeat. 8. Follow-up in the office as directed. 9. If you were prescribed antibiotics, do not stop them without talking to your provider. 10. Do not drink alcohol while taking metronidazole. Refrain from drinking alcohol for 48 hours after completing metronidazole. - Diet and Activity Activity: increase activity as tolerated Diet: advance to your usual diet - Hospital Course Hospital course: Mr. Antony is a 67 year old male who presented on 04/02/2017 for centralized abdominal discomfort. A CT scan demonstrated acute appendicitis. He was taken to the operating room where he underwent laparoscopic appendectomy, by Dr. Wisdom , that was complicated by a full perforation, free pus in the abdomen, and stool in the abdominal cavity. He remained hospitalized for observation, IV antibiotics, and discomfort management. The remainder of his hospital course has been uncomplicated. He has been afebrile for greater than 48 hours, ambulating and voiding without difficulty. He is tolerating a regular diet without nausea or vomiting. His vital signs are stable. We will begin discharge planning to home within follow-up in the office in 2 weeks. He will be discharged on Cipro and Flagyl for 7 days. - Time Spent with Patient Total time spent providing and/or coordinating discharge services: <Baljit Wisdom - Last Filed: 04/06/17 18:35> Date of Encounter: 04/06/17 - Discharge Diagnosis (1) Acute appendicitis Status: Acute Qualifiers: Acute appendicitis type: with localized peritonitis Qualified Code(s): K35.3 - Acute appendicitis with localized peritonitis General Surgery Exam Initial Vital Signs Temp Pulse Resp BP Pulse Ox 97.5 F L 69 16 183/118 95 04/02/17 09:45 04/02/17 09:45 04/02/17 09:45 04/02/17 09:45 04/02/17 09:45 Date of admission: 04/05/17 09:24 Primary care physician: Pete Calderon Jr, MD - Hospital Course Hospital course: Mr. Antony is a 67 year old male - Time Spent with Patient Total time spent providing and/or coordinating discharge services: - Attending Attestation I have personally performed a face to face evaluation on this patient. I have reviewed and agree with the care plan. History and Exam by me shows: The patient is seen and evaluated on morning rounds. Clinical information shared with the clinical nurse practitioner. Patient feels well and is afebrile. His incisions are in excellent condition. I think that he is reasonable for discharge on ciprofloxacin and Flagyl. I will see him as an outpatient. Baljit Wisdom MD FACS
[2017-04-06] MEDS: TIMOLOL OP SCH (10:33)
[2017-04-06] MEDS: LEUTEIN PO SCH (10:33)
[2017-04-06] MEDS: DORZOLAMIDE OP SCH (10:33)
[2017-04-06] MEDS: Piperacillin/Tazobactam 3.375 GM in D5% in Water (Mini-Bag+) 100 ML IVPB SCH (10:34)
== END 2017-04-06 11:55 | disposition home or self-care (01) | DRG 340 ==
LOC: 3BNU 09:44 → EMEROO 09:44 → 3BNU 11:55
PROVIDERS: ADMIT Surgery; ATTEND Surgery